=== PATIENT | male | born 1945 | race Caucasian/White ===

== ENCOUNTER 2018-09-01 18:48 | Inpatient (IN) | payer BC ==
[2018-09-01 19:07] LABS: BASOPHILS % (AUTO) 1 % (0-3); EOSINOPHILS % (AUTO) 1 % (0-9); HEMATOCRIT 40 % (39-53); HEMOGLOBIN 13.5 gm/dl (13.5-17.7); MEAN CORPUSCULAR HEMOGLOBIN 30.6 pg (27.0-32.0); MEAN CORPUSCULAR VOLUME 90 fL (80-100); MONOCYTES % (AUTO) 9.1 % (0-12)
[2018-09-01] MEDS: SODIUM CHLORIDE 0.9% FLUSH 10 ML SOL IV PRN ×2 (19:07→20:46)
[2018-09-01] MEDS: SODIUM CHLORIDE 0.9% 1000ML 1,000 ML IV SCH ×3 (19:07→22:40)
[2018-09-01 19:09] LABS: INR 2.03 (0.86-1.12)
[2018-09-01 19:35] LABS: ALBUMIN 3.4 gm/dl (3.4-5.0); ALKALINE PHOSPHATASE 136 IU/L (46-116); ALT 39 IU/L (14-63); AST 21 IU/L (15-37); BILIRUBIN,TOTAL 0.4 mg/dl (0.2-1.0); BLOOD UREA NITROGEN 21 mg/dl (7-18); CALCIUM 8.5 mg/dl (8.5-10.1); CARBON DIOXIDE 24.5 mEq/L (21-32); CHLORIDE 107 mMol/L (98-107); CREATININE 1.29 mg/dl (0.80-1.30); GLUCOSE 124 mg/dl (74-106); MAGNESIUM 1.7 mg/dl (1.8-2.4); POTASSIUM 4.4 mMol/L (3.5-5.1); SODIUM 140 mMol/L (136-145); THYROID STIMULATING HORMONE 2.331 uIU/ml (0.358-3.740); TOTAL PROTEIN 6.8 gm/dl (6.4-8.2); TROP I < 0.017 ng/ml (0.000-0.056)
[2018-09-01] MEDS ORDERED: WARFARIN SODIUM 3 MG TAB PO SCH (20:30)
[2018-09-01] MEDS ORDERED: ATORVASTATIN CALCIUM 80 MG TAB PO SCH (21:00)
[2018-09-01] MEDS: SODIUM CHLORIDE 0.9% FLUSH 10 ML SOL IV SCH (21:53)
[2018-09-01] MEDS ORDERED: ATORVASTATIN 10 MG TAB PO SCH (23:00)
[2018-09-02 00:12] VITALS: O2SAT 96
[2018-09-02] MEDS: SODIUM CHLORIDE 0.9% FLUSH 10 ML SOL IV SCH (03:47)
[2018-09-02 07:44] LABS: BASOPHILS % (AUTO) 1 % (0-3); EOSINOPHILS % (AUTO) 2 % (0-9); HEMATOCRIT 40 % (39-53); HEMOGLOBIN 13.6 gm/dl (13.5-17.7); MEAN CORPUSCULAR HEMOGLOBIN 30.6 pg (27.0-32.0); MEAN CORPUSCULAR HGB CONC 34.2 gm/dl (32.0-36.0); MEAN CORPUSCULAR VOLUME 90 fL (80-100); MONOCYTES % (AUTO) 7.3 % (0-12); NEUTROPHILS % (AUTO) 63.1 % (37-80)
[2018-09-02 07:45] LABS: CALCIUM 8.7 mg/dl (8.5-10.1); CARBON DIOXIDE 24.7 mEq/L (21-32); CREATININE 1.22 mg/dl (0.80-1.30); POTASSIUM 4.3 mMol/L (3.5-5.1)
[2018-09-02 08:09] LABS: INR 1.89 (0.86-1.12)
[2018-09-02] MEDS ORDERED: LISINOPRIL 5 MG TAB PO SCH (09:00)
[2018-09-02 09:11] VITALS: BP 146/79; PULSE 84; RESP 16; TEMP 97.9
[2018-09-02 09:52] LABS: APPEARANCE,URINE Clear; BILIRUBIN,URINE NEGATIVE (NEGATIVE); COLOR,URINE Yellow; GLUCOSE, URINE (UA) NEGATIVE (NEGATIVE); KETONES,URINE NEGATIVE (NEGATIVE); LEUKOCYTE ESTERASE ,URINE NEGATIVE (NEGATIVE); NITRATE,URINE NEGATIVE (NEGATIVE); OCCULT BLOOD,URINE TRACE INTACT (NEG-TRACE); UROBILINOGEN,URINE 0.2 (0.2-1.0 EU)
[2018-09-02 11:06] LABS: BACTERIA TRACE (< 1+); CRYSTALS NEGATIVE (0-3 AVE/HPF); EPITHELIAL CELLS 0-1 (SQUAMOUS); RBC,URINE 0-3 (0-3AV/HPF); WBC,URINE 0-1 (0-5AV/HPF)
[2018-09-02] MEDS ORDERED: WARFARIN SODIUM 3 MG TAB PO SCH (20:25)
== END 2018-09-02 11:35 | disposition home or self-care (01) | DRG 71 ==
LOC: ED 18:48 → UNDOADMIN 20:09 → ACUTE CARE 20:09
PROVIDERS: ADMIT Family Medicine; ATTEND Family Medicine
PROC: F01L0ZZ Muscle Performance Assessment of Musculoskeletal System - Lower Back / Lower Extremity (ICD-10-PCS; principal; 2018-09-02)
PROC: F01L5ZZ Range of Motion and Joint Integrity Assessment of Musculoskeletal System - Lower Back / Lower Extremity (ICD-10-PCS; 2018-09-02)
DX: G45.4 Transient global amnesia (principal); I50.9 Heart failure, unspecified; G45.9 Transient cerebral ischemic attack, unspecified; Z79.01 Long term (current) use of anticoagulants; R41.0 Disorientation, unspecified; R29.701 NIHSS score 1; R40.2362 Coma scale, best motor response, obeys commands, at arrival to emergency department; R40.2142 Coma scale, eyes open, spontaneous, at arrival to emergency department; R40.2252 Coma scale, best verbal response, oriented, at arrival to emergency department; R40.4 Transient alteration of awareness; I48.2 Chronic atrial fibrillation
CPT/HCPCS: 36415; 70450; 80048; 80053; 81001; 83735; 84443; 84484; 85025; 85610; 93005; 93012; 96365; 99223; 99291; A9270-GY